=== PATIENT | female | born 2000 | race Caucasian/White ===

== ENCOUNTER → 2021-04-02 | Outpatient (REF) | payer OTHER ==
[2021-04-02 19:26] LABS: GC DNA AMPLIFICATION NEGATIVE (NEGATIVE)
== END ==
LOC: M SFHCWAGY 17:10
PROVIDERS: ATTEND Advanced Practice Midwife
DX: Z11.3 Encounter for screening for infections with a predominantly sexual mode of transmission (principal); Z12.4 Encounter for screening for malignant neoplasm of cervix